=== PATIENT | male | born 1970 | race American Indian/Alaskan Native ===

== ENCOUNTER 2016-11-28 00:07 | Emergency (ER) | payer MEDICAID ==
[2016-11-28 00:22] VITALS: BP 137/89; PULSE 93; RESP 20; TEMP 97.9; O2SAT 97
--- NOTE | 2016-11-28 00:53 | C.PDOC ---
History Of Present Illness 46 yo male come in for evaluation of multiple insect bite developed for past few days. As per pt, " its probably flees from my dog, I cant get rid of". Pt sts, rash is itchy, and generalized over body now. Otherwise, pt denies fever, chills, headache, dizziness, throat pain or swelling/tightness, cough, CP, SOB, dyspnea, wheezing, denies wound draining. Ambulate to ED for evaluation, not in any apparent distress. Time Seen by Provider: 11/28/16 00:27 Chief Complaint (Nursing): Abnormal Skin Integrity History Per: Patient Onset/Duration Of Symptoms: Gradual Past Medical History Reviewed: Historical Data, Nursing Documentation, Vital Signs Vital Signs: Last Vital Signs Temp 97.9 F 11/28/16 00:16 Pulse 93 H 11/28/16 00:16 Resp 20 11/28/16 00:16 BP 137/89 11/28/16 00:16 Pulse Ox 97 11/28/16 00:16 - Medical History PMH: Asthma, HTN, Rheumatoid Arthritis Family History: States: No Known Family Hx - Social History Hx Alcohol Use: No Hx Substance Use: No Review Of Systems Except As Marked, All Systems Reviewed And Found Negative. Constitutional: Negative for: Fever, Chills Eyes: Negative for: Vision Change ENT: Negative for: Throat Pain, Throat Swelling Cardiovascular: Negative for: Chest Pain, Palpitations Respiratory: Negative for: Cough, Shortness of Breath, Wheezing Gastrointestinal: Negative for: Nausea, Vomiting, Abdominal Pain Skin: Positive for: Rash Neurological: Negative for: Weakness, Altered Mental Status, Headache, Dizziness Physical Exam - Physical Exam Appears: Well, Non-toxic, No Acute Distress Skin: Normal Color, Warm, Rash (generalized papular erythematous rash to B/L LEs , with mild edema, erythema and central induration, rash to B/L UEs, lower back. NO flactulance.) Nose: No Flaring Oral Mucosa: Moist Tongue: Normal Appearing, No Swelling Lips: Normal Appearing, No Swelling Throat: No Erythema, Other (Uvula midline, no edema.) Neck: Supple Respiratory: No Decreased Breath Sounds, No Accessory Muscle Use, No Stridor, No Wheezing Back: No CVA Tenderness Extremity: Normal ROM, No Pedal Edema Neurological/Psych: Oriented x3, Normal Speech ED Course And Treatment O2 Sat by Pulse Oximetry: 97 Pulse Ox Interpretation: Normal Progress Note: On re-evaluation, pt is afebrile, hemodynamicaly stable. Non- toxic. PulseOx 97% RA. ENT: no acute findings. Neck: Supple. Lungs: CTA /L, BS equal B/L. Skin: exam c/w diffuse papular rash, erythematous c/w insect bite r/o cellulitis. Pt advised on course of ds. ref. to F/u with PMD in 1-2 days for re-eavl. return to ED if any worsening or new changes. Disposition Counseled Patient/Family Regarding: Diagnosis, Need For Followup, Rx Given - Disposition Referrals: Dandy Manning MD [Medical Doctor] - Disposition: HOME/ ROUTINE Disposition Time: 00:51 Condition: STABLE Additional Instructions: Take medication as prescribed Clean living area, bed Wash your clothes Follow up with PMD in 2-3 days for re-evaluation. Return to ED if any worsening or new changes. Prescriptions: Cephalexin [cephalexin] 500 mg PO Q6 #28 cap DiphenhydrAMINE [Benadryl] 25 mg PO BID #10 cap Prednisone [Deltasone] 20 mg PO DAILY #3 tablet Instructions: Insect Bite or Sting (ED), Cellulitis (ED) Forms: [employer] ([place]ian) - Clinical Impression Clinical Impression: Cellulitis, Insect bite
== END 2016-11-28 01:21 | disposition home or self-care (01) ==
LOC: C.ER 00:07
DX: L03.90 Cellulitis, unspecified (principal); T14.8 Other injury of unspecified body region; W57.XXXA Bitten or stung by nonvenomous insect and other nonvenomous arthropods, initial encounter

== ENCOUNTER 2017-01-08 17:02 | Emergency (ER) | payer MEDICAID ==
[2017-01-08 17:12] VITALS: BMI 33.4
[2017-01-08] MEDS ORDERED: Albuterol-Ipratrop 3 mg / 0.5 (3 ml) UD INH STA ×3 (17:22→17:39)
[2017-01-08] MEDS ORDERED: Albuterol-Ipratrop 3 mg / 0.5 (3 ml) UD ONE (17:25)
--- NOTE | 2017-01-08 17:56 | C.PDOC ---
History Of Present Illness 46 y/o male presents to ED with complaints of worsening sob and cough since earlier today. Patient states he tried to use inhaler with no improvement and reports symptoms are similar to previous asthma episodes. Patient denies chest pain, fever, chills or any other complaints at this time. Time Seen by Provider: 01/08/17 17:18 Chief Complaint (Nursing): Shortness Of Breath History Per: Patient History/Exam Limitations: no limitations Onset/Duration Of Symptoms: Hrs, Waxing/Waning Initiating Event: Upper Respiratory Illness Past Medical History Reviewed: Historical Data, Nursing Documentation, Vital Signs Vital Signs: Last Vital Signs Temp 97.9 F 01/08/17 18:22 Pulse 71 01/08/17 18:22 Resp 20 01/08/17 18:22 BP 114/79 01/08/17 18:22 Pulse Ox 95 01/08/17 18:48 - Medical History PMH: Asthma, HTN, Rheumatoid Arthritis Surgical History: No Surg Hx Family History: States: No Known Family Hx - Social History Hx Alcohol Use: No Hx Substance Use: No - Immunization History Hx Tetanus Toxoid Vaccination: No Hx Influenza Vaccination: No Review Of Systems Except As Marked, All Systems Reviewed And Found Negative. Constitutional: Negative for: Fever, Chills Cardiovascular: Negative for: Chest Pain Respiratory: Positive for: Cough, Shortness of Breath Gastrointestinal: Negative for: Nausea, Vomiting Skin: Negative for: Rash Neurological: Negative for: Weakness, Numbness Physical Exam - Physical Exam Appears: Non-toxic, No Acute Distress Skin: Normal Color, Warm, Dry, No Rash Head: Atraumatic, Normacephalic Eye(s): bilateral: Normal Inspection Oral Mucosa: Moist Throat: Normal, No Erythema Neck: Normal ROM, Supple Chest: Symmetrical Cardiovascular: Rhythm Regular, No Murmur Respiratory: No Rales, No Rhonchi, Wheezing (Expiratory) Gastrointestinal/Abdominal: Soft, No Tenderness, No Guarding, No Rebound Neurological/Psych: Oriented x3 ED Course And Treatment O2 Sat by Pulse Oximetry: 95 (RA) Pulse Ox Interpretation: Normal - Radiology CXR: Interpreted by Me CXR Interpretation: Yes: No Acute Disease. No: Infiltrates Medical Decision Making Medical Decision Making: Patient was examined by Dr. Dill who agrees with plan. Duonebs, CXR, and Prednisone. On re-exam, the patient reports much improvement. Pulse ox is 97% on RA. Lungs are CTA, heart is RRR, ambulatory in the ED with steady gait. Final Peak flow is 300. Follow up with the medical doctor/clinic within 1-2 days without fail, Return if worsened. Disposition - Disposition Referrals: [facility] [Outside] Disposition: HOME/ ROUTINE Disposition Time: 18:47 Condition: GOOD Additional Instructions: Follow up with the medical doctor within 1-2 days without fail, Return if worsened. 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 - Scribe Statement The provider has reviewed the documentation as recorded by the Princeibnael Molina All medical record entries made by the José Luis were at my direction and personally dictated by me. I have reviewed the chart and agree that the record accurately reflects my personal performance of the history, physical exam, medical decision making, and the department course for this patient. I have also personally directed, reviewed, and agree with the discharge instructions and disposition.
[2017-01-08 18:22] VITALS: BP 114/79; PULSE 71; RESP 20; TEMP 97.9
--- NOTE | 2017-01-08 18:27 | RAD ---
HISTORY: shortness of breath COMPARISON: None available. TECHNIQUE: Chest PA and lateral FINDINGS: Examination limited by habitus. LUNGS: No focal consolidation. Please note that chest x-ray has limited sensitivity for the detection of pulmonary masses. PLEURA: No significant pleural effusion identified. No definite pneumothorax . CARDIOVASCULAR: The cardiomediastinal silhouette appears within normal limits of size. OSSEOUS STRUCTURES: Degenerative changes. VISUALIZED UPPER ABDOMEN: Alberto Unremarkable. OTHER FINDINGS: None. IMPRESSION: No focal consolidation, significant pleural effusion, or definite pneumothorax identified.
[2017-01-08 18:48] VITALS: O2SAT 95
== END 2017-01-08 18:52 | disposition home or self-care (01) ==
LOC: C.ER 17:02
DX: J45.909 Unspecified asthma, uncomplicated (principal)